=== PATIENT | male | born 1955 | race Caucasian/White ===

== ENCOUNTER 2020-08-20 09:26 | Inpatient (IN) | payer OTHER ==
--- NOTE | 2020-08-20 09:38 | EDM.PDOC ---
ED HPI GENERAL MEDICAL PROBLEM - General Chief Complaint: Diabetic Complaint Stated Complaint: [facility]AL [facility] Time Seen by Provider: 08/20/20 09:30 Source of Information: Reports: Patient History Limitations: Reports: No Limitations - History of Present Illness INITIAL COMMENTS - FREE TEXT/NARRATIVE: 64-year-old male [facility] where it was discovered that his blood sugar is greater than 705. Patient has no known history of diabetes. No family history of diabetes. He reports he has been excessively thirsty with polyuria and polydipsia for the last month. Estimates a 17 pound weight loss over the last month. Feels lightheaded and dizzy and weak at times. 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 He has a 58-76-ccrn-year history of cigarette smoking. Chronic cough occasionally productive of brownish sputum. No fever or chills. No COVID-19 illness. He has received his first injection for COVID-19 illness. Onset: Gradual Onset Date: 07/24/20 (Feels symptoms started about a month ago.) Duration: Week(s):, Getting Worse Location: Reports: Generalized (Neurolysed weakness with weight loss and associated polyuria polydipsia) Quality: Reports: Other (Excessive thirst) Severity: Severe (polyuria) Improves with: Reports: None Worsens with: Reports: None Context: Reports: Other (Sent to the ER due to blood sugar reportedly greater than 705 at the [facility] that were as collected yesterday.). Denies: Activity, Exercise, Lifting, Sick Contact, Trauma Associated Symptoms: Reports: Cough, cough w sputum (Cough from cigarette smoking), Loss of Appetite, Malaise, Weakness (I severe weakness.). 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 (see below) - Related Data Allergies Allergy/AdvReac Type Severity Reaction Status Date / Time No Known Allergies Allergy Verified 08/20/20 09:35 Home Meds: Home Meds Cetirizine HCl [Allergy Relief] 10 mg PO DAILY 08/20/20 [History] Cholecalciferol (Vitamin D3) [Vitamin D3] 25 mcg PO DAILY 08/20/20 [History] Hydrocortisone [Hydrocortisone 2.5% Crm] 30 gm TOP BID PRN 08/20/20 [History] atorvaSTATin Calcium [Atorvastatin Calcium] 20 mg PO BEDTIME 08/20/20 [History] metFORMIN HCl [Metformin HCl] 500 mg PO BIDMEALS 08/20/20 [History] Past Medical History Musculoskeletal History: Reports: Other (See Below) (Nearly chopped off his great big toe on the right side with a lawnmower. It was put back on with skin grafting. He has had open reduction internal fixation of right ankle fracture) Social & Family History - Living Situation & Occupation Living situation: Reports: Single Occupation: Retired ED ROS GENERAL - Review of Systems Review Of Systems: See Below Constitutional: Reports: Malaise, Weakness, Fatigue, Decreased Appetite, Weight Loss (He estimates 17 pounds in the last 3 to 4 weeks). Denies: Fever, Chills HEENT: Reports: Glasses, Other (Vision) Respiratory: Reports: Shortness of Breath ( seems to change a blurred at times.), Wheezing, Cough, Sputum. Denies: Pleuritic Chest Pain, Hemoptysis Cardiovascular: Reports: Dyspnea on Exertion, Lightheadedness, Palpitations. Denies: Chest Pain (Known sputum at times), Blood Pressure Problem, Claudication, Edema, Orthopnea Endocrine: Reports: Fatigue, High Glucose (Diagnosed with high glucose by lab test yesterday [facility] 705. New onset type 2 diabetes) GI/Abdominal: Reports: Constipation. Denies: Diarrhea, Decreased Appetite, Difficulty Swallowing (Stools are harder to pass as of late.), Distension, Flatus, Hematemesis, Hematochezia, Melena, Mucous in Stool, Nausea, Stool Incontinence, Vomiting, Other : Reports: Frequency Musculoskeletal: Reports: Back Pain, Joint Pain Skin: Reports: No Symptoms (Knees hips neck and shoulders at times) Neurological: Reports: Dizziness, Difficulty Walking (Walking very far I suspect he has a component of claudication in his calves.), Weakness (Dizziness at times.) Psychiatric: Reports: No Symptoms Hematologic/Lymphatic: Reports: No Symptoms Immunologic: Reports: No Symptoms ED EXAM GENERAL NO PERIP PULSE - Physical Exam Exam: See Below Exam Limited By: No Limitations General Appearance: Alert, WD/WN, No Apparent Distress, Other (Has a grayish color to his skin from chronic smoking. Temperature is 36.2 degrees heart rate 91 and sinus respiratory it is 20 with O2 sats of 90% on room air BP 105/64.) Eye Exam: Bilateral Eye: Normal Inspection (No scleral icterus or blepharal pallor.) Throat/Mouth: Normal Lips ( He is in need of dental repairs.), Inflammation, Other. No: Normal Teeth (Tongue is extremely dry and coated.) Head: Atraumatic (Oropharynx is diffusely inflamed from cigarette smoking. No exudate), Normocephalic Neck: Limited Range of Motion, Tender Lateral (Mild bilaterally.). No: Carotid Bruit, Lymphadenopathy (L) (Crepitus on lateral rotation of his cervical spine.), Lymphadenopathy (R) Respiratory/Chest: Respiratory Distress, Decreased Breath Sounds, Rhonchi, Wheezing (Sounds are diminished to the lower 20% lung vincent bilaterally. Scattered expiratory wheezes throughout all lung lobes.). No: No Respiratory Distress, Lungs Clear (Rhonchi upper anterior chest that clears with coughing.), Normal Breath Sounds Cardiovascular: Regular Rate, Rhythm, No Edema, No Gallop, No Murmur, No Rub, Other (Decreased pulses to both feet 1+ and symmetrical. Clinically has mild peripheral vascular disease). No: Normal Peripheral Pulses (Tachypnea at rest.) GI/Abdominal: Normal Bowel Sounds, Soft, Non-Tender, No Organomegaly, No Mass, Pelvis Stable, Other (Male) Exam: No Hernia (No surgical scars) Back Exam: Normal Inspection. No: CVA Tenderness (L), CVA Tenderness (R) Extremities: Normal Inspection, Normal Range of Motion, Non-Tender, No Pedal Edema Neurological: Alert, Oriented, CN II-XII Intact, Normal Cognition Psychiatric: Normal Affect, Normal Mood Skin Exam: Warm, Dry, Intact, Normal Color, No Rash #1 Interpretation EKG Date: 08/20/20 Time: 09:51 Rhythm: NSR Rate (Beats/Min): 82 [place]: Normal P-Wave: Present (Inverted in lead III?) QRS: Normal ST-T: Other (Diffuse early repolarization pattern with pseudoelevation of ST segment in leads II, III and aVF.) QT: Prolonged (Early prolonged.) EKG Interpretation Comments: Abnormal ECG Course - Vital Signs Last Recorded V/S: Last Vital Signs Temp 36.2 C 08/20/20 09:34 Pulse 91 08/20/20 09:34 Resp 20 08/20/20 09:34 BP 105/64 08/20/20 09:34 Pulse Ox 98 08/20/20 09:34 - Orders/Labs/Meds Orders: Active Orders 24 hr Category Date Time Status Admission Status [Patient Status] [ADT] Routine ADT 08/20/20 11:16 Active Blood Glucose Check, Bedside [RC] ONETIME Care 08/20/20 09:46 Active EKG Documentation Completion [RC] STAT Care 08/20/20 09:45 Active GLUCOSE RANDOM [CHEM] Q1H Lab 08/20/20 11:45 Ordered GLUCOSE RANDOM [CHEM] Q1H Lab 08/20/20 12:45 Ordered GLUCOSE RANDOM [CHEM] Q1H Lab 08/20/20 13:45 Ordered GLUCOSE RANDOM [CHEM] Q1H Lab 08/20/20 14:45 Ordered GLUCOSE RANDOM [CHEM] Q1H Lab 08/20/20 15:45 Ordered GLUCOSE RANDOM [CHEM] Q1H Lab 08/20/20 16:45 Ordered GLYCOSYLATED HEMOGLOBIN,HGBA1C [CHEM] Stat Lab 08/20/20 09:48 Received Insulin Regular, Human [HumuLIN R] 100 unit Med 08/20/20 10:45 Active Sodium Chloride 0.9% [Normal Saline] 99 ml IV ASDIRECTED Lactated Ringers [Ringers, Lactated] 1,000 ml Med 08/20/20 09:45 Active IV ASDIRECTED Lactated Ringers [Ringers, Lactated] 1,000 ml Med 08/20/20 11:00 Active IV ASDIRECTED Medication Orders Lactated Ringer's (Ringers, Lactated) 1,000 mls @ 999 mls/hr IV ASDIRECTED AMAURY Last Admin: 08/20/20 09:50 Dose: 999 mls/hr Documented by: RUBEN Insulin Human Regular 100 unit (/ Sodium Chloride) 100 mls @ 3 mls/hr IV ASDIRECTED [facility] Last Admin: 08/20/20 10:51 Dose: 3 unit/hr, 3 mls/hr Documented by: RUBEN Cosigned by: JEN Lactated Ringer's (Ringers, Lactated) 1,000 mls @ 999 mls/hr IV ASDIRECTED [facility] Last Admin: 08/20/20 10:56 Dose: 999 mls/hr Documented by: JEN Labs: Laboratory Tests 08/20/20 08/20/20 08/20/20 Range/Units 09:48 09:48 09:48 WBC 9.82 H (4.23-9.07) K/mm3 RBC 5.01 (4.63-6.08) M/mm3 Hgb 15.5 (13.7-17.5) gm/dl Hct 44.4 (40.1-51.0) % MCV 88.6 (79.0-92.2) fl MCH 30.9 (25.7-32.2) pg MCHC 34.9 (32.2-35.5) g/dl RDW Std Deviation 40.9 (35.1-43.9) fL Plt Count 275 (163-337) K/mm3 MPV 9.8 (9.4-12.3) fl Neut % (Auto) 77.0 H (34.0-67.9) % Lymph % (Auto) 15.1 L (21.8-53.1) % [place] % (Auto) 6.5 (5.3-12.2) % Eos % (Auto) 0.8 (0.8-7.0) Baso % (Auto) 0.3 (0.1-1.2) % Neut # (Auto) 7.56 H (1.78-5.38) K/mm3 Lymph # (Auto) 1.48 (1.32-3.57) K/mm3 [place] # (Auto) 0.64 (0.30-0.82) K/mm3 Eos # (Auto) 0.08 (0.04-0.54) K/mm3 Baso # (Auto) 0.03 (0.01-0.08) K/mm3 PT 9.8 (9.7-12.0) SECONDS INR < 0.93 APTT 25.0 (21.7-31.4) SECONDS Sodium (136-145) mEq/L Potassium (3.5-5.1) mEq/L Chloride (98-107) mEq/L Carbon Dioxide (21-32) mEq/L Anion Gap (5-15) BUN (7-18) mg/dL Creatinine (0.7-1.3) mg/dL Est Cr Clr Drug Dosing mL/min Estimated GFR (MDRD) (>60) mL/min BUN/Creatinine Ratio (14-18) Glucose (80-115) mg/dL Serum Osmolality (280-300) mosm/kg Lactic Acid (0.4-2.0) mmol/L Calcium (8.5-10.1) mg/dL Phosphorus (2.6-4.7) mg/dL Magnesium (1.8-2.4) mg/dl Total Bilirubin (0.2-1.0) mg/dL AST (15-37) U/L ALT (16-63) U/L Alkaline Phosphatase (46-116) U/L Troponin I (0.00-0.056) ng/mL C-Reactive Protein (<1.0) mg/dL NT-Pro-B Natriuret Pep (0-125) pg/mL Total Protein (6.4-8.2) g/dl Albumin (3.4-5.0) g/dl Globulin gm/dL Albumin/Globulin Ratio (1-2) Urine Color (Yellow) Urine Appearance (Clear) Urine pH (5.0-8.0) Ur Specific [place] (1.005-1.030) Urine Protein (Negative) Urine Glucose (UA) (Negative) Urine Ketones (Negative) Urine Occult Blood (Negative) Urine Nitrite (Negative) Urine Bilirubin (Negative) Urine Urobilinogen (0.2-1.0) Ur Leukocyte Esterase (Negative) Urine RBC (0-5) /hpf Urine WBC (0-5) /hpf Ur Squamous Epith Cells (0-5) /hpf Urine Bacteria (FEW) /hpf Urine Mucus (FEW) /hpf Ketones 1.21 (0.0-0.3) mM SARS-CoV-2 RNA (NYLA) (NEGATIVE) 08/20/20 08/20/20 08/20/20 Range/Units 09:48 09:48 09:48 WBC (4.23-9.07) K/mm3 RBC (4.63-6.08) M/mm3 Hgb (13.7-17.5) gm/dl Hct (40.1-51.0) % MCV (79.0-92.2) fl MCH (25.7-32.2) pg MCHC (32.2-35.5) g/dl RDW Std Deviation (35.1-43.9) fL Plt Count (163-337) K/mm3 MPV (9.4-12.3) fl Neut % (Auto) (34.0-67.9) % Lymph % (Auto) (21.8-53.1) % [place] % (Auto) (5.3-12.2) % Eos % (Auto) (0.8-7.0) Baso % (Auto) (0.1-1.2) % Neut # (Auto) (1.78-5.38) K/mm3 Lymph # (Auto) (1.32-3.57) K/mm3 [place] # (Auto) (0.30-0.82) K/mm3 Eos # (Auto) (0.04-0.54) K/mm3 Baso # (Auto) (0.01-0.08) K/mm3 PT (9.7-12.0) SECONDS INR APTT (21.7-31.4) SECONDS Sodium 128 L (136-145) mEq/L Potassium 5.2 H (3.5-5.1) mEq/L Chloride 92 L (98-107) mEq/L Carbon Dioxide 25 (21-32) mEq/L Anion Gap 16.2 H (5-15) BUN 34 H (7-18) mg/dL Creatinine 1.7 H (0.7-1.3) mg/dL Est Cr Clr Drug Dosing 41.91 mL/min Estimated GFR (MDRD) 41 (>60) mL/min BUN/Creatinine Ratio 20.0 H (14-18) Glucose 712 H* (80-115) mg/dL Serum Osmolality 320 H (280-300) mosm/kg Lactic Acid (0.4-2.0) mmol/L Calcium 10.4 H (8.5-10.1) mg/dL Phosphorus 3.8 (2.6-4.7) mg/dL Magnesium 2.2 (1.8-2.4) mg/dl Total Bilirubin 0.7 (0.2-1.0) mg/dL AST 17 (15-37) U/L ALT 38 (16-63) U/L Alkaline Phosphatase 171 H (46-116) U/L Troponin I < 0.017 (0.00-0.056) ng/mL C-Reactive Protein 0.6 (<1.0) mg/dL NT-Pro-B Natriuret Pep 45 (0-125) pg/mL Total Protein 7.3 (6.4-8.2) g/dl Albumin 3.3 L (3.4-5.0) g/dl Globulin 4.0 gm/dL Albumin/Globulin Ratio 0.8 L (1-2) Urine Color (Yellow) Urine Appearance (Clear) Urine pH (5.0-8.0) Ur Specific [place] (1.005-1.030) Urine Protein (Negative) Urine Glucose (UA) (Negative) Urine Ketones (Negative) Urine Occult Blood (Negative) Urine Nitrite (Negative) Urine Bilirubin (Negative) Urine Urobilinogen (0.2-1.0) Ur Leukocyte Esterase (Negative) Urine RBC (0-5) /hpf Urine WBC (0-5) /hpf Ur Squamous Epith Cells (0-5) /hpf Urine Bacteria (FEW) /hpf Urine Mucus (FEW) /hpf Ketones (0.0-0.3) mM SARS-CoV-2 RNA ([facility]LA) (NEGATIVE) 08/20/20 08/20/20 08/20/20 Range/Units 09:55 10:05 10:22 WBC (4.23-9.07) K/mm3 RBC (4.63-6.08) M/mm3 Hgb (13.7-17.5) gm/dl Hct (40.1-51.0) % MCV (79.0-92.2) fl MCH (25.7-32.2) pg MCHC (32.2-35.5) g/dl RDW Std Deviation (35.1-43.9) fL Plt Count (163-337) K/mm3 MPV (9.4-12.3) fl Neut % (Auto) (34.0-67.9) % Lymph % (Auto) (21.8-53.1) % [place] % (Auto) (5.3-12.2) % Eos % (Auto) (0.8-7.0) Baso % (Auto) (0.1-1.2) % Neut # (Auto) (1.78-5.38) K/mm3 Lymph # (Auto) (1.32-3.57) K/mm3 [place] # (Auto) (0.30-0.82) K/mm3 Eos # (Auto) (0.04-0.54) K/mm3 Baso # (Auto) (0.01-0.08) K/mm3 PT (9.7-12.0) SECONDS INR APTT (21.7-31.4) SECONDS Sodium (136-145) mEq/L Potassium (3.5-5.1) mEq/L Chloride (98-107) mEq/L Carbon Dioxide (21-32) mEq/L Anion Gap (5-15) BUN (7-18) mg/dL Creatinine (0.7-1.3) mg/dL Est Cr Clr Drug Dosing mL/min Estimated GFR (MDRD) (>60) mL/min BUN/Creatinine Ratio (14-18) Glucose (80-115) mg/dL Serum Osmolality (280-300) mosm/kg Lactic Acid 1.0 (0.4-2.0) mmol/L Calcium (8.5-10.1) mg/dL Phosphorus (2.6-4.7) mg/dL Magnesium (1.8-2.4) mg/dl Total Bilirubin (0.2-1.0) mg/dL AST (15-37) U/L ALT (16-63) U/L Alkaline Phosphatase (46-116) U/L Troponin I (0.00-0.056) ng/mL C-Reactive Protein (<1.0) mg/dL NT-Pro-B Natriuret Pep (0-125) pg/mL Total Protein (6.4-8.2) g/dl Albumin (3.4-5.0) g/dl Globulin gm/dL Albumin/Globulin Ratio (1-2) Urine Color Yellow (Yellow) Urine Appearance Clear (Clear) Urine pH 5.5 (5.0-8.0) Ur Specific [place] 1.010 (1.005-1.030) Urine Protein Negative (Negative) Urine Glucose (UA) 2+ H (Negative) Urine Ketones Trace H (Negative) Urine Occult Blood Trace-intact H (Negative) Urine Nitrite Negative (Negative) Urine Bilirubin Negative (Negative) Urine Urobilinogen 0.2 (0.2-1.0) Ur Leukocyte Esterase Negative (Negative) Urine RBC 5-10 H (0-5) /hpf Urine WBC 0-5 (0-5) /hpf Ur Squamous Epith Cells 0-5 (0-5) /hpf Urine Bacteria Few (FEW) /hpf Urine Mucus Few (FEW) /hpf Ketones (0.0-0.3) mM SARS-CoV-2 RNA ([facility]LA) Negative (NEGATIVE) Meds: Medications Generic Name Dose Route Start Last Admin Trade Name Silvano PRN Reason Stop Dose Admin Lactated Ringer's 1,000 mls @ 999 mls/hr 08/20/20 09:45 08/20/20 09:50 Ringers, Lactated IV 999 mls/hr ASDIRECTED AMAURY Administration Insulin Human Regular 100 unit 100 mls @ 3 mls/hr 08/20/20 10:45 08/20/20 10:51 / Sodium Chloride IV 3 unit/hr ASDIRECTED AMAURY 3 mls/hr Administration 3 UNIT/HR Lactated Ringer's 1,000 mls @ 999 mls/hr 08/20/20 11:00 08/20/20 10:56 Ringers, Lactated IV 999 mls/hr ASDIRECTED AMAURY Administration - Radiology Interpretation Free Text/Narrative:: 64-year-old male presents to the ED at the [facility]. He had lab work done yesterday and the results revealed that he is a new type onset type II diabetic. Blood sugar is reportedly 705. He has been symptomatic for about a month with a 17 pound reported weight loss polyuria polydipsia and weakness and fatigue. He is a heavy smoker [id number] history with no known coronary disease but I am suspect mild peripheral vascular disease and some claudication in his lower extremities. Plan IV Ringer's lactate at open. We will check his blood sugar at the bedside and start insulin drip as required. Coronavirus screen will be obtained as he will be an admission to the hospital. - Re-Assessments/Exams Free Text/Narrative Re-Assessment/Exam: 08/20/20 10:33 portable chest x-ray reveals heart size and mediastinum to be are normal. Lungs are clear with no definite acute parenchymal changes. Bony structures are grossly intact. Lead sugar is reported to be 712. Will start insulin infusion at 3 units an hour. Blood sugars will be done every 1 hour after insulin infusion has started. 08/20/20 10:38 Total white count is 9.82 with the auto differential showing 77% neutrophils. Hemoglobin is 15.5 with hematocrit of 44.4. MCV is normal at 88.6. Platelet count 275,000. Sodium is low at 128 with a potassium slightly elevated at 5.2. Chloride is 92. Bicarb is 25 anion gap is 16.2 BUN is 34 the creatinine of 1.7 and a GFR of 41. Glucose was 712. Calcium 10.4 phosphorus 3.8 magnesium 2.2 liver function normal alk phosphatase was slightly elevated 171. Troponin I is less than 0.017 C-reactive protein is 0.6 BNP is 45 total protein 7.3 with an albumin fraction of 3.3. Urinalysis reveals 2+ glucosuria trace of ketones and trace of occult blood.. Leukocyte esterase is negative. M icro on the urinalysis is not yet done. Lactic acid and ketones are not yet available. 08/20/20 10:54 Urine shows 5-10 RBCs per high-power field but no white cells. Serum ketones are mildly elevated at 1.21. COVID-19 screen is negative. Lactic acid, glycosylated protein are pending. Serum osmolality is also pending. He has completed his first liter of IV fluids. Will repeat Ringer's lactate at open. 08/20/20 11:15 Serum osmolality is 320 mildly elevated. Lactic acid is 1.0. Glycosylated protein is not yet available. Dr. Gill is aware of the admission. He advised to send the patient to the intensive care unit. Did discuss with the patient whether or not he would need a nicotine patch and he believed he would not need to have one. Departure - Departure Time of Disposition: 11:33 Disposition: Home, Self-Care 01 Condition: Fair Clinical Impression: New onset type 2 diabetes mellitus, Volume depletion, Ketoacidosis - Discharge Information *PRESCRIPTION DRUG MONITORING PROGRAM REVIEWED*: Not Applicable *COPY OF PRESCRIPTION DRUG MONITORING REPORT IN PATIENT MICAH: Not Applicable Instructions: Type 2 Diabetes Mellitus, Diagnosis, Adult Referrals: Kristi Marinelli MD [Primary Care Provider] - Forms: ED Department Discharge Sepsis Event Note (ED) - Evaluation Sepsis Screening Result: No Definite Risk - Focused Exam Vital Signs: Vital Signs Temp Pulse Resp BP Pulse Ox 08/20/20 09:34 36.2 C 91 20 105/64 98 - My Orders Last 24 Hours: My Active Orders 08/20/20 09:45 EKG Documentation Completion [RC] STAT Lactated Ringers [Ringers, Lactated] 1,000 ml IV ASDIRECTED 08/20/20 09:46 Blood Glucose Check, Bedside [RC] ONETIME 08/20/20 09:48 GLYCOSYLATED HEMOGLOBIN,HGBA1C [CHEM] Stat 08/20/20 10:45 Insulin Regular, Human [HumuLIN R] 100 unit Sodium Chloride 0.9% [Normal Saline] 99 ml IV ASDIRECTED 08/20/20 11:00 Lactated Ringers [Ringers, Lactated] 1,000 ml IV ASDIRECTED 08/20/20 11:16 Admission Status [Patient Status] [ADT] Routine 08/20/20 11:45 GLUCOSE RANDOM [CHEM] Q1H 08/20/20 12:45 GLUCOSE RANDOM [CHEM] Q1H 08/20/20 13:45 GLUCOSE RANDOM [CHEM] Q1H 08/20/20 14:45 GLUCOSE RANDOM [CHEM] Q1H 08/20/20 15:45 GLUCOSE RANDOM [CHEM] Q1H 08/20/20 16:45 GLUCOSE RANDOM [CHEM] Q1H - Assessment/Plan Last 24 Hours: My Active Orders 08/20/20 09:45 EKG Documentation Completion [RC] STAT Lactated Ringers [Ringers, Lactated] 1,000 ml IV ASDIRECTED 08/20/20 09:46 Blood Glucose Check, Bedside [RC] ONETIME 08/20/20 09:48 GLYCOSYLATED HEMOGLOBIN,HGBA1C [CHEM] Stat 08/20/20 10:45 Insulin Regular, Human [HumuLIN R] 100 unit Sodium Chloride 0.9% [Normal Saline] 99 ml IV ASDIRECTED 08/20/20 11:00 Lactated Ringers [Ringers, Lactated] 1,000 ml IV ASDIRECTED 08/20/20 11:16 Admission Status [Patient Status] [ADT] Routine 08/20/20 11:45 GLUCOSE RANDOM [CHEM] Q1H 08/20/20 12:45 GLUCOSE RANDOM [CHEM] Q1H 08/20/20 13:45 GLUCOSE RANDOM [CHEM] Q1H 08/20/20 14:45 GLUCOSE RANDOM [CHEM] Q1H 08/20/20 15:45 GLUCOSE RANDOM [CHEM] Q1H 08/20/20 16:45 GLUCOSE RANDOM [CHEM] Q1H
[2020-08-20] MEDS ORDERED: Lactated Ringers 1,000 ML IV SCH ×3 (09:45→14:15)
--- NOTE | 2020-08-20 10:23 | CR ---
Chest: Portable view of the chest was obtained. Comparison: No prior chest imaging is available. Heart size and mediastinum are normal. Lungs are clear with no definite acute parenchymal change. Bony structures are grossly intact. Impression: 1. Nothing acute is definitely appreciated on portable chest x-ray. Diagnostic code #1
[2020-08-20] MEDS ORDERED: Acetaminophen 325 MG Tab PO PRN (13:59)
--- NOTE | 2020-08-20 14:14 | PCM.HP.2 ---
H&P History of Present Illness - General Date of Service: 08/20/20 Admit Problem/Dx: Admission Diagnosis/Problem Admission Diagnosis/Problem Type 2 diabetes mellitus - History of Present Illness Initial Comments - Free Text/Narative: 54-year-old male who was called this morning at 4:30 in the morning about elevat ed blood sugars presented to [facility] with a blood sugar greater than 700. Patient's provider called and said that his hemoglobin A1c was greater than 14. He has had a 17 pound weight loss over the last month and a half or so and has felt short of breath and palpitations going up or down stairs for the last 3 weeks. They placed an event monitor on him earlier because of the palpitations. Patient has no history of diabetes but does complain of polyuria and polydipsia. He is a smoker of 1/2 pack/day with a 40 to 50 pack year history. He refuses any nicotine patch at this time. Currently he is sitting in bed without any complaints. Patient was found to have blood sugar of 712 in the emergency department and was given fluid boluses as well as started on insulin. He is currently on an insulin drip at 3 units/h. Blood sugars have slowly come down and is now in the 400s. His serum osmolality was 320. - Related Data Allergies/Adverse Reactions: Allergies Allergy/AdvReac Type Severity Reaction Status Date / Time No Known Allergies Allergy Verified 08/20/20 09:35 Home Medications: Home Meds Cetirizine HCl [Allergy Relief] 10 mg PO DAILY 08/20/20 [History] Cholecalciferol (Vitamin D3) [Vitamin D3] 25 mcg PO DAILY 08/20/20 [History] Hydrocortisone [Hydrocortisone 2.5% Crm] 30 gm TOP BID PRN 08/20/20 [History] atorvaSTATin Calcium [Atorvastatin Calcium] 20 mg PO BEDTIME 08/20/20 [History] metFORMIN HCl [Metformin HCl] 500 mg PO BIDMEALS 08/20/20 [History] Past Medical History HEENT History: Reports: Other (See Below) Other HEENT History: [place], bilateral hearing aides Cardiovascular History: Reports: High Cholesterol, Hypertension Respiratory History: Reports: SOB Musculoskeletal History: Reports: Other (See Below) Other Musculoskeletal History: left toe skin graph Endocrine/Metabolic History: Reports: Diabetes, Type II Social & Family History - Tobacco Use Tobacco Use Status *Q: Current Every Day Tobacco User Years of Tobacco use: 30 Packs/Tins Daily: 0.5 - Caffeine Use Caffeine Use: Reports: Soda - Recreational Drug Use Recreational Drug Use: No - Living Situation & Occupation Living situation: Reports: Single Occupation: Retired H&P Review of Systems - Review of Systems: Review Of Systems: Comprehensive ROS is negative, except as noted in HPI. Exam - Exam Exam: See Below - Vital Signs Vital Signs: Last Vital Signs Temp 97.1 F 08/20/20 09:34 Pulse 91 08/20/20 09:34 Resp 20 08/20/20 09:34 BP 105/64 08/20/20 09:34 Pulse Ox 98 08/20/20 09:34 Weight: 191 lb 8 oz - Exam Quality Assessment: No: Supplemental Oxygen General: Alert, Oriented, 4 HEENT: Conjunctiva Clear, Mucosa Moist & Leslie, Normal Nasal Septum Neck: Supple, Trachea Midline, 2 Lungs: Normal Respiratory Effort, Wheezing (Mild expiratory wheeze) Cardiovascular: Regular Rate, Regular Rhythm GI/Abdominal Exam: Normal Bowel Sounds, Soft, Non-Tender, No Organomegaly, No Distention, No Abnormal Bruit, No Mass Back Exam: Normal Inspection, Full Range of Motion, NT Extremities: Normal Inspection, Normal Range of Motion, Non-Tender, No Pedal Edema, Normal Capillary Refill Peripheral Pulses: 2+: Posterior Tibial (L), Posterior Tibial (R), Dorsalis Pedis (L), Dorsalis Pedis (R) Skin: Warm, Dry, Intact Neuro Extensive - Mental Status: Alert, Oriented x3, Normal Mood/Affect, Normal Cognition, Memory Intact Neuro Extensive - Motor, Sensory, Reflexes: CN II-XII Intact Psychiatric: Alert, Normal Affect, Normal Mood - Patient Data Lab Results Last 24 hrs: Laboratory Results - last 24 hr 08/20/20 08/20/20 08/20/20 Range/Units 09:48 09:48 09:48 WBC 9.82 H (4.23-9.07) K/mm3 RBC 5.01 (4.63-6.08) M/mm3 Hgb 15.5 (13.7-17.5) gm/dl Hct 44.4 (40.1-51.0) % MCV 88.6 (79.0-92.2) fl MCH 30.9 (25.7-32.2) pg MCHC 34.9 (32.2-35.5) g/dl RDW Std Deviation 40.9 (35.1-43.9) fL Plt Count 275 (163-337) K/mm3 MPV 9.8 (9.4-12.3) fl Neut % (Auto) 77.0 H (34.0-67.9) % Lymph % (Auto) 15.1 L (21.8-53.1) % Sharkey % (Auto) 6.5 (5.3-12.2) % Eos % (Auto) 0.8 (0.8-7.0) Baso % (Auto) 0.3 (0.1-1.2) % Neut # (Auto) 7.56 H (1.78-5.38) K/mm3 Lymph # (Auto) 1.48 (1.32-3.57) K/mm3 Sharkey # (Auto) 0.64 (0.30-0.82) K/mm3 Eos # (Auto) 0.08 (0.04-0.54) K/mm3 Baso # (Auto) 0.03 (0.01-0.08) K/mm3 PT 9.8 (9.7-12.0) SECONDS INR < 0.93 APTT 25.0 (21.7-31.4) SECONDS Sodium (136-145) mEq/L Potassium (3.5-5.1) mEq/L Chloride (98-107) mEq/L Carbon Dioxide (21-32) mEq/L Anion Gap (5-15) BUN (7-18) mg/dL Creatinine (0.7-1.3) mg/dL Est Cr Clr Drug Dosing mL/min Estimated GFR (MDRD) (>60) mL/min BUN/Creatinine Ratio (14-18) Glucose (80-115) mg/dL Serum Osmolality (280-300) mosm/kg Lactic Acid (0.4-2.0) mmol/L Calcium (8.5-10.1) mg/dL Phosphorus (2.6-4.7) mg/dL Magnesium (1.8-2.4) mg/dl Total Bilirubin (0.2-1.0) mg/dL AST (15-37) U/L ALT (16-63) U/L Alkaline Phosphatase (46-116) U/L Troponin I (0.00-0.056) ng/mL C-Reactive Protein (<1.0) mg/dL NT-Pro-B Natriuret Pep (0-125) pg/mL Total Protein (6.4-8.2) g/dl Albumin (3.4-5.0) g/dl Globulin gm/dL Albumin/Globulin Ratio (1-2) Urine Color (Yellow) Urine Appearance (Clear) Urine pH (5.0-8.0) Ur Specific Wilson (1.005-1.030) Urine Protein (Negative) Urine Glucose (UA) (Negative) Urine Ketones (Negative) Urine Occult Blood (Negative) Urine Nitrite (Negative) Urine Bilirubin (Negative) Urine Urobilinogen (0.2-1.0) Ur Leukocyte Esterase (Negative) Urine RBC (0-5) /hpf Urine WBC (0-5) /hpf Ur Squamous Epith Cells (0-5) /hpf Urine Bacteria (FEW) /hpf Urine Mucus (FEW) /hpf Ketones 1.21 (0.0-0.3) mM SARS-CoV-2 RNA (NYLA) (NEGATIVE) 08/20/20 08/20/20 08/20/20 Range/Units 09:48 09:48 09:48 WBC (4.23-9.07) K/mm3 RBC (4.63-6.08) M/mm3 Hgb (13.7-17.5) gm/dl Hct (40.1-51.0) % MCV (79.0-92.2) fl MCH (25.7-32.2) pg MCHC (32.2-35.5) g/dl RDW Std Deviation (35.1-43.9) fL Plt Count (163-337) K/mm3 MPV (9.4-12.3) fl Neut % (Auto) (34.0-67.9) % Lymph % (Auto) (21.8-53.1) % Sharkey % (Auto) (5.3-12.2) % Eos % (Auto) (0.8-7.0) Baso % (Auto) (0.1-1.2) % Neut # (Auto) (1.78-5.38) K/mm3 Lymph # (Auto) (1.32-3.57) K/mm3 Sharkey # (Auto) (0.30-0.82) K/mm3 Eos # (Auto) (0.04-0.54) K/mm3 Baso # (Auto) (0.01-0.08) K/mm3 PT (9.7-12.0) SECONDS INR APTT (21.7-31.4) SECONDS Sodium 128 L (136-145) mEq/L Potassium 5.2 H (3.5-5.1) mEq/L Chloride 92 L (98-107) mEq/L Carbon Dioxide 25 (21-32) mEq/L Anion Gap 16.2 H (5-15) BUN 34 H (7-18) mg/dL Creatinine 1.7 H (0.7-1.3) mg/dL Est Cr Clr Drug Dosing 41.91 mL/min Estimated GFR (MDRD) 41 (>60) mL/min BUN/Creatinine Ratio 20.0 H (14-18) Glucose 712 H* (80-115) mg/dL Serum Osmolality 320 H (280-300) mosm/kg Lactic Acid (0.4-2.0) mmol/L Calcium 10.4 H (8.5-10.1) mg/dL Phosphorus 3.8 (2.6-4.7) mg/dL Magnesium 2.2 (1.8-2.4) mg/dl Total Bilirubin 0.7 (0.2-1.0) mg/dL AST 17 (15-37) U/L ALT 38 (16-63) U/L Alkaline Phosphatase 171 H (46-116) U/L Troponin I < 0.017 (0.00-0.056) ng/mL C-Reactive Protein 0.6 (<1.0) mg/dL NT-Pro-B Natriuret Pep 45 (0-125) pg/mL Total Protein 7.3 (6.4-8.2) g/dl Albumin 3.3 L (3.4-5.0) g/dl Globulin 4.0 gm/dL Albumin/Globulin Ratio 0.8 L (1-2) Urine Color (Yellow) Urine Appearance (Clear) Urine pH (5.0-8.0) Ur Specific Wilson (1.005-1.030) Urine Protein (Negative) Urine Glucose (UA) (Negative) Urine Ketones (Negative) Urine Occult Blood (Negative) Urine Nitrite (Negative) Urine Bilirubin (Negative) Urine Urobilinogen (0.2-1.0) Ur Leukocyte Esterase (Negative) Urine RBC (0-5) /hpf Urine WBC (0-5) /hpf Ur Squamous Epith Cells (0-5) /hpf Urine Bacteria (FEW) /hpf Urine Mucus (FEW) /hpf Ketones (0.0-0.3) mM SARS-CoV-2 RNA ([facility]LA) (NEGATIVE) 08/20/20 08/20/20 08/20/20 Range/Units 09:55 10:05 10:22 WBC (4.23-9.07) K/mm3 RBC (4.63-6.08) M/mm3 Hgb (13.7-17.5) gm/dl Hct (40.1-51.0) % MCV (79.0-92.2) fl MCH (25.7-32.2) pg MCHC (32.2-35.5) g/dl RDW Std Deviation (35.1-43.9) fL Plt Count (163-337) K/mm3 MPV (9.4-12.3) fl Neut % (Auto) (34.0-67.9) % Lymph % (Auto) (21.8-53.1) % Sharkey % (Auto) (5.3-12.2) % Eos % (Auto) (0.8-7.0) Baso % (Auto) (0.1-1.2) % Neut # (Auto) (1.78-5.38) K/mm3 Lymph # (Auto) (1.32-3.57) K/mm3 Sharkey # (Auto) (0.30-0.82) K/mm3 Eos # (Auto) (0.04-0.54) K/mm3 Baso # (Auto) (0.01-0.08) K/mm3 PT (9.7-12.0) SECONDS INR APTT (21.7-31.4) SECONDS Sodium (136-145) mEq/L Potassium (3.5-5.1) mEq/L Chloride (98-107) mEq/L Carbon Dioxide (21-32) mEq/L Anion Gap (5-15) BUN (7-18) mg/dL Creatinine (0.7-1.3) mg/dL Est Cr Clr Drug Dosing mL/min Estimated GFR (MDRD) (>60) mL/min BUN/Creatinine Ratio (14-18) Glucose (80-115) mg/dL Serum Osmolality (280-300) mosm/kg Lactic Acid 1.0 (0.4-2.0) mmol/L Calcium (8.5-10.1) mg/dL Phosphorus (2.6-4.7) mg/dL Magnesium (1.8-2.4) mg/dl Total Bilirubin (0.2-1.0) mg/dL AST (15-37) U/L ALT (16-63) U/L Alkaline Phosphatase (46-116) U/L Troponin I (0.00-0.056) ng/mL C-Reactive Protein (<1.0) mg/dL NT-Pro-B Natriuret Pep (0-125) pg/mL Total Protein (6.4-8.2) g/dl Albumin (3.4-5.0) g/dl Globulin gm/dL Albumin/Globulin Ratio (1-2) Urine Color Yellow (Yellow) Urine Appearance Clear (Clear) Urine pH 5.5 (5.0-8.0) Ur Specific Wilson 1.010 (1.005-1.030) Urine Protein Negative (Negative) Urine Glucose (UA) 2+ H (Negative) Urine Ketones Trace H (Negative) Urine Occult Blood Trace-intact H (Negative) Urine Nitrite Negative (Negative) Urine Bilirubin Negative (Negative) Urine Urobilinogen 0.2 (0.2-1.0) Ur Leukocyte Esterase Negative (Negative) Urine RBC 5-10 H (0-5) /hpf Urine WBC 0-5 (0-5) /hpf Ur Squamous Epith Cells 0-5 (0-5) /hpf Urine Bacteria Few (FEW) /hpf Urine Mucus Few (FEW) /hpf Ketones (0.0-0.3) mM SARS-CoV-2 RNA ([facility]LA) Negative (NEGATIVE) 08/20/20 08/20/20 Range/Units 11:35 12:49 WBC (4.23-9.07) K/mm3 RBC (4.63-6.08) M/mm3 Hgb (13.7-17.5) gm/dl Hct (40.1-51.0) % MCV (79.0-92.2) fl MCH (25.7-32.2) pg MCHC (32.2-35.5) g/dl RDW Std Deviation (35.1-43.9) fL Plt Count (163-337) K/mm3 MPV (9.4-12.3) fl Neut % (Auto) (34.0-67.9) % Lymph % (Auto) (21.8-53.1) % Sharkey % (Auto) (5.3-12.2) % Eos % (Auto) (0.8-7.0) Baso % (Auto) (0.1-1.2) % Neut # (Auto) (1.78-5.38) K/mm3 Lymph # (Auto) (1.32-3.57) K/mm3 Sharkey # (Auto) (0.30-0.82) K/mm3 Eos # (Auto) (0.04-0.54) K/mm3 Baso # (Auto) (0.01-0.08) K/mm3 PT (9.7-12.0) SECONDS INR APTT (21.7-31.4) SECONDS Sodium (136-145) mEq/L Potassium (3.5-5.1) mEq/L Chloride (98-107) mEq/L Carbon Dioxide (21-32) mEq/L Anion Gap (5-15) BUN (7-18) mg/dL Creatinine (0.7-1.3) mg/dL Est Cr Clr Drug Dosing mL/min Estimated GFR (MDRD) (>60) mL/min BUN/Creatinine Ratio (14-18) Glucose 551 H 464 H (80-115) mg/dL Serum Osmolality (280-300) mosm/kg Lactic Acid (0.4-2.0) mmol/L Calcium (8.5-10.1) mg/dL Phosphorus (2.6-4.7) mg/dL Magnesium (1.8-2.4) mg/dl Total Bilirubin (0.2-1.0) mg/dL AST (15-37) U/L ALT (16-63) U/L Alkaline Phosphatase (46-116) U/L Troponin I (0.00-0.056) ng/mL C-Reactive Protein (<1.0) mg/dL NT-Pro-B Natriuret Pep (0-125) pg/mL Total Protein (6.4-8.2) g/dl Albumin (3.4-5.0) g/dl Globulin gm/dL Albumin/Globulin Ratio (1-2) Urine Color (Yellow) Urine Appearance (Clear) Urine pH (5.0-8.0) Ur Specific Wilson (1.005-1.030) Urine Protein (Negative) Urine Glucose (UA) (Negative) Urine Ketones (Negative) Urine Occult Blood (Negative) Urine Nitrite (Negative) Urine Bilirubin (Negative) Urine Urobilinogen (0.2-1.0) Ur Leukocyte Esterase (Negative) Urine RBC (0-5) /hpf Urine WBC (0-5) /hpf Ur Squamous Epith Cells (0-5) /hpf Urine Bacteria (FEW) /hpf Urine Mucus (FEW) /hpf Ketones (0.0-0.3) mM SARS-CoV-2 RNA (NYLA) (NEGATIVE) Result Diagrams: 08/20/20 09:48 08/20/20 09:48 Sepsis Event Note - Evaluation Sepsis Screening Result: No Definite Risk - Focused Exam Vital Signs: Vital Signs Temp Pulse Resp BP Pulse Ox 08/20/20 09:34 97.1 F 91 20 105/64 98 - Problem List (1) Ketoacidosis SNOMED Code(s): 06048482 ICD Code: E87.2 - ACIDOSIS Status: Acute Current Visit: Yes (2) New onset type 2 diabetes mellitus SNOMED Code(s): 45984137 ICD Code: E11.9 - TYPE 2 DIABETES MELLITUS WITHOUT COMPLICATIONS Status: Acute Current Visit: Yes Problem List Initiated/Reviewed/Updated: Yes Orders Last 24hrs: Active Orders 24 hr Category Date Time Status Admission Status [Patient Status] [ADT] Routine ADT 08/20/20 11:16 Active Blood Glucose Check, Bedside [RC] ONETIME Care 08/20/20 09:46 Active EKG Documentation Completion [RC] STAT Care 08/20/20 09:45 Active Oxygen Therapy [RC] PRN Care 08/20/20 13:59 Active Up ad Mattie [RC] ASDIRECTED Care 08/20/20 13:59 Active VTE/DVT Education [RC] PER UNIT ROUTINE Care 08/20/20 13:59 Active Vital Signs [RC] Q4H Care 08/20/20 13:59 Active 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 [CONS] Routine Cons 08/20/20 13:59 Active Consistent Carbohydrate Diet [DIET] Diet 08/20/20 Dinner Active ABG [BLOOD GAS ARTERIAL] [BG] Urgent Lab 08/20/20 14:09 Ordered BASIC METABOLIC PANEL,BMP [CHEM] Routine Lab 08/20/20 14:04 Ordered CBC WITH AUTO DIFF [HEME] AM Lab 08/21/20 05:11 Ordered COMPREHENSIVE METABOLIC PN,CMP [CHEM] AM Lab 08/21/20 05:11 Ordered GLUCOSE RANDOM [CHEM] Q1H Lab 08/20/20 13:47 Received GLUCOSE RANDOM [CHEM] Q1H Lab 08/20/20 14:45 Ordered GLUCOSE RANDOM [CHEM] Q1H Lab 08/20/20 15:45 Ordered GLUCOSE RANDOM [CHEM] Q1H Lab 08/20/20 16:45 Ordered GLYCOSYLATED HEMOGLOBIN,HGBA1C [CHEM] Stat Lab 08/20/20 09:48 Received MAGNESIUM [CHEM] AM Lab 08/21/20 05:11 Ordered MAGNESIUM [CHEM] Routine Lab 08/20/20 14:04 Ordered PHOSPHORUS [CHEM] Routine Lab 08/20/20 14:04 Ordered Acetaminophen [TylenoL] Med 08/20/20 13:59 Active 650 mg PO Q4H PRN Enoxaparin [Lovenox] Med 08/21/20 09:00 Active 40 mg SUBCUT DAILY Insulin Glarg,Human.Rec.Analog [LantUS] Med 08/20/20 16:00 Ordered 10 unit SUBCUT BIDAC Insulin Regular, Human [HumuLIN R] 100 unit Med 08/20/20 10:45 Active Sodium Chloride 0.9% [Normal Saline] 99 ml IV ASDIRECTED Lactated Ringers [Ringers, Lactated] 1,000 ml Med 08/20/20 09:45 Active IV ASDIRECTED Lactated Ringers [Ringers, Lactated] 1,000 ml Med 08/20/20 11:00 Active IV ASDIRECTED atorvaSTATin [Lipitor] Med 08/20/20 21:00 Ordered 20 mg PO BEDTIME Resuscitation Status Routine Resus Stat 08/20/20 13:59 Ordered Medication Orders Acetaminophen (Acetaminophen 325 Mg Tab) 650 mg PO Q4H PRN PRN Reason: Pain (Mild 1-3)/fever Atorvastatin Calcium (Atorvastatin 20 Mg Tab) 20 mg PO BEDTIME [facility] Enoxaparin Sodium (Enoxaparin 40 Mg/0.4 Ml Syringe) 40 mg SUBCUT DAILY [facility] Lactated Ringer's (Ringers, Lactated) 1,000 mls @ 999 mls/hr IV ASDIRECTED [facility] Last Admin: 08/20/20 09:50 Dose: 999 mls/hr Documented by: RUBEN Insulin Human Regular 100 unit (/ Sodium Chloride) 100 mls @ 3 mls/hr IV ASDIRECTED [facility] Last Admin: 08/20/20 10:51 Dose: 3 unit/hr, 3 mls/hr Documented by: RUBEN Cosigned by: JEN Lactated Ringer's (Ringers, Lactated) 1,000 mls @ 999 mls/hr IV ASDIRECTED [facility] Last Admin: 08/20/20 10:56 Dose: 999 mls/hr Documented by: JEN Insulin Glargine (Insulin Glarg,Human.Rec.Analog 100 Unit/Ml) 10 unit SUBCUT BIDAC [facility] Assessment/Plan Comment:: Assessment 54-year-old male with polyuria, polydipsia, and weight loss presents to the emergency department with new onset type 2 diabetes. Patient has had a 17 pound weight loss and palpitations with exertion. Initial blood sugar 712 and reportedly hemoglobin A1c of greater than 14%. Diabetic ketoacidosis Pseudohyponatremia Hyperkalemia * Initial blood sugar 712 * Ketones slightly elevated at 1.2 * Serum osmolality 320 * Anion gap of 16.2 * Given IV fluids and started on insulin drip in the emergency department History of hyperlipidemia Plan * Admit to ICU * Switch to subcu insulin protocol * Fingerstick blood sugar every 1 hour with initially 5 units Humalog subcu per hour until blood sugars are less than 300 and pH is normal. * At that point patient will be started on diabetic diet and 0.5 units of insulin divided with sliding scale insulin will be started. * Lantus 10 units twice daily * Humalog 7 units before every meal plus sliding scale insulin when taking orally * Continue IV fluids at 200 mL/h until taking orally * Follow BMP, magnesium, phosphorus * Recheck ketones and pH as needed * Diabetic education will likely need to be done as an outpatient since it is Sunday afternoon and [facility] * Dietary consult * Nursing to teach how to give insulin * Recheck hemoglobin A1c * If microalbuminuria will start on SMITH or ARB * Continue on home statin * VTE prophylaxis with Lovenox * CODE STATUS full code - Mortality Measure Prognosis:: Good
[2020-08-20] MEDS: Insulin Glarg,Human.Rec.Analog 100 Unit/ML SUBCUT SCH ×2 (14:35→15:24)
[2020-08-20 15:31] LABS: HEMOGLOBIN A1C >14.0 %
[2020-08-20] MEDS: NS + KCl 20mEq/L 1,000 ML IV SCH ×2 (15:57→22:20)
[2020-08-20] MEDS ORDERED: atorvaSTATin 20 MG Tab PO SCH (21:00)
[2020-08-21] MEDS: NS + KCl 20mEq/L 1,000 ML IV SCH (05:06)
[2020-08-21] MEDS: Insulin Glarg,Human.Rec.Analog 100 Unit/ML SUBCUT SCH (06:48)
[2020-08-21] MEDS ORDERED: Enoxaparin 40 MG/0.4 ML Syringe SUBCUT SCH (09:00)
[2020-08-21] MEDS ORDERED: Insulin Glarg,Human.Rec.Analog 100 Unit/ML SUBCUT SCH ×2 (09:45)
--- NOTE | 2020-08-21 13:22 | PCM.DCSUM1 ---
Discharge Summary - Hospital Course Free Text/Narrative:: Patient was admitted to the hospital due to DKA. he was treated with insulin drip and then switch to Lantus subcutaneously. Today he feels much better. Denies headache, dizziness, nausea, vomiting, abdominal pain, dysuria, fever, chills, or polyuria. Vital signs are stable and acceptable. He really wants to go home today. He is newly diagnosed with diabetes. Discussed with him about the care of diabetes and the importance of checking blood sugar. I advised him to check blood sugar before each meal and at bedtime. Adjust the amount of the insulin based on the sugar level. I also met his and the daughter. I explained the diabetes and diabetic care to them. They have a confidence to tell care for him and check his blood sugar and use insulin correctly. He will be discharged home to follow with PCP [place] 3 days (Sunday) ([place]), electrical sign servicer within 1 week and patient educator as soon as possible. Please stay with diabetic diet. Do not drive until approval from MD. Diabetic equipment such as glucometer, lancets, alcohol pads and syringe was prescribed. Spoke to our pharmacy who will supply with him enough insulin for the weekend. Call PCP for medical issues. Diagnosis: Stroke: No - Discharge Data Discharge Date: 08/21/20 Discharge Disposition: Home, Self-Care 01 Condition: Good - Referral to Home Health Primary Care Physician: Kristi Marinelli MD - Patient Summary/Data Consults: Consultations 08/20/20 13:59 Consult to Exchange Operator [CONS] Routine Recommended Follow-up Testing/Procedures: Primary CARE physician ([facility]) within 3 days, electrical sign servicer within 1 week and patient educator as soon as possible. - Patient Instructions Diet: Diabetic Diet Activity: As Tolerated Driving: Do Not Drive - Discharge Plan *PRESCRIPTION DRUG MONITORING PROGRAM REVIEWED*: Not Applicable *COPY OF PRESCRIPTION DRUG MONITORING REPORT IN PATIENT MICAH: Not Applicable Prescriptions/Med Rec: Insulin Lispro [Humalog] See Protocol SUBCUT QIDACANDBED #10 ml Insulin Glarg,Human.Rec.Analog [Lantus] 13 unit SUBCUT BID #10 ml Home Medications: Home Meds Cholecalciferol (Vitamin D3) [Vitamin D3] 25 mcg PO DAILY 08/20/20 [History] atorvaSTATin Calcium [Atorvastatin Calcium] 20 mg PO BEDTIME 08/20/20 [History] metFORMIN HCl [Metformin HCl] 500 mg PO BIDMEALS 08/20/20 [History] Insulin Glarg,Human.Rec.Analog [Lantus] 13 unit SUBCUT BID #10 ml 08/21/20 [Rx] Insulin Lispro [Humalog] See Protocol SUBCUT QIDACANDBED #10 ml 08/21/20 [Rx] Patient Handouts: Type 2 Diabetes Mellitus, Diagnosis, Adult, Steps to Quit Smoking Forms: ED Department Discharge Referrals: Kristi Marinelli MD [Primary Care Provider] - - Discharge Summary/Plan Comment DC Time >30 min.: Yes - General Info Date of Service: 08/21/20 - Review of Systems General: Reports: No Symptoms HEENT: Reports: No Symptoms Pulmonary: Reports: No Symptoms Cardiovascular: Reports: No Symptoms Gastrointestinal: Reports: No Symptoms Genitourinary: Reports: No Symptoms Musculoskeletal: Reports: No Symptoms Skin: Reports: No Symptoms Neurological: Reports: No Symptoms Psychiatric: Reports: No Symptoms - Patient Data Vitals - Most Recent: Last Vital Signs Temp 36.3 C 08/21/20 12:00 Pulse 71 08/21/20 12:00 Resp 16 08/21/20 12:00 BP 137/76 08/21/20 12:00 Pulse Ox 96 08/21/20 12:00 Weight - Most Recent: 87.815 kg I&O - Last 24 hours: Intake & Output 08/20/20 08/21/20 08/21/20 22:59 06:59 14:59 Intake Total 795 2090 1120 Output Total 400 200 175 Balance 395 1890 945 Lab Results - Last 24 hrs: Laboratory Results - last 24 hr 08/20/20 08/20/20 08/20/20 Range/Units 09:48 12:49 13:47 WBC (4.23-9.07) K/mm3 RBC (4.63-6.08) M/mm3 Hgb (13.7-17.5) gm/dl Hct (40.1-51.0) % MCV (79.0-92.2) fl MCH (25.7-32.2) pg MCHC (32.2-35.5) g/dl RDW Std Deviation (35.1-43.9) fL Plt Count (163-337) K/mm3 MPV (9.4-12.3) fl Neut % (Auto) (34.0-67.9) % Lymph % (Auto) (21.8-53.1) % [place] % (Auto) (5.3-12.2) % Eos % (Auto) (0.8-7.0) Baso % (Auto) (0.1-1.2) % Neut # (Auto) (1.78-5.38) K/mm3 Lymph # (Auto) (1.32-3.57) K/mm3 [place] # (Auto) (0.30-0.82) K/mm3 Eos # (Auto) (0.04-0.54) K/mm3 Baso # (Auto) (0.01-0.08) K/mm3 Manual Slide Review Puncture Site ABG pH (7.35-7.45) ABG pCO2 (35.0-45.0) mmHg ABG pO2 (80.0-100.0) mmHg ABG HCO3 (22.0-26.0) meq/L ABG O2 Saturation (96.0-97.0) % ABG Base Excess (-2-2.0) Jose Luis Test O2 Delivery Device Sodium (136-145) mEq/L Potassium (3.5-5.1) mEq/L Chloride (98-107) mEq/L Carbon Dioxide (21-32) mEq/L Anion Gap (5-15) BUN (7-18) mg/dL Creatinine (0.7-1.3) mg/dL Est Cr Clr Drug Dosing mL/min Estimated GFR (MDRD) (>60) mL/min BUN/Creatinine Ratio (14-18) Glucose 464 H 421 H (80-115) mg/dL POC Glucose (80-115) mg/dL Hemoglobin A1c >14.0 H ( - 5.6) % Calcium (8.5-10.1) mg/dL Phosphorus (2.6-4.7) mg/dL Magnesium (1.8-2.4) mg/dl Total Bilirubin (0.2-1.0) mg/dL AST (15-37) U/L ALT (16-63) U/L Alkaline Phosphatase (46-116) U/L Total Protein (6.4-8.2) g/dl Albumin (3.4-5.0) g/dl Globulin gm/dL Albumin/Globulin Ratio (1-2) 08/20/20 08/20/20 08/20/20 Range/Units 14:09 14:45 14:45 WBC (4.23-9.07) K/mm3 RBC (4.63-6.08) M/mm3 Hgb (13.7-17.5) gm/dl Hct (40.1-51.0) % MCV (79.0-92.2) fl MCH (25.7-32.2) pg MCHC (32.2-35.5) g/dl RDW Std Deviation (35.1-43.9) fL Plt Count (163-337) K/mm3 MPV (9.4-12.3) fl Neut % (Auto) (34.0-67.9) % Lymph % (Auto) (21.8-53.1) % [place] % (Auto) (5.3-12.2) % Eos % (Auto) (0.8-7.0) Baso % (Auto) (0.1-1.2) % Neut # (Auto) (1.78-5.38) K/mm3 Lymph # (Auto) (1.32-3.57) K/mm3 [place] # (Auto) (0.30-0.82) K/mm3 Eos # (Auto) (0.04-0.54) K/mm3 Baso # (Auto) (0.01-0.08) K/mm3 Manual Slide Review Puncture Site Lt radial ABG pH 7.43 (7.35-7.45) ABG pCO2 38.1 (35.0-45.0) mmHg ABG pO2 65.0 L (80.0-100.0) mmHg ABG HCO3 25.0 (22.0-26.0) meq/L ABG O2 Saturation 94.0 L (96.0-97.0) % ABG Base Excess 1.4 (-2-2.0) Jose Luis Test Positive O2 Delivery Device Room air Sodium 134 L (136-145) mEq/L Potassium 3.9 (3.5-5.1) mEq/L Chloride 98 (98-107) mEq/L Carbon Dioxide 26 (21-32) mEq/L Anion Gap 13.9 (5-15) BUN 30 H (7-18) mg/dL Creatinine 1.4 H (0.7-1.3) mg/dL Est Cr Clr Drug Dosing 50.89 mL/min Estimated GFR (MDRD) 51 (>60) mL/min BUN/Creatinine Ratio 21.4 H (14-18) Glucose 377 H 377 H (80-115) mg/dL POC Glucose (80-115) mg/dL Hemoglobin A1c ( - 5.6) % Calcium 9.4 (8.5-10.1) mg/dL Phosphorus 3.4 (2.6-4.7) mg/dL Magnesium 2.2 (1.8-2.4) mg/dl Total Bilirubin (0.2-1.0) mg/dL AST (15-37) U/L ALT (16-63) U/L Alkaline Phosphatase (46-116) U/L Total Protein (6.4-8.2) g/dl Albumin (3.4-5.0) g/dl Globulin gm/dL Albumin/Globulin Ratio (1-2) 08/20/20 08/20/20 08/20/20 Range/Units 15:48 17:09 18:25 WBC (4.23-9.07) K/mm3 RBC (4.63-6.08) M/mm3 Hgb (13.7-17.5) gm/dl Hct (40.1-51.0) % MCV (79.0-92.2) fl MCH (25.7-32.2) pg MCHC (32.2-35.5) g/dl RDW Std Deviation (35.1-43.9) fL Plt Count (163-337) K/mm3 MPV (9.4-12.3) fl Neut % (Auto) (34.0-67.9) % Lymph % (Auto) (21.8-53.1) % [place] % (Auto) (5.3-12.2) % Eos % (Auto) (0.8-7.0) Baso % (Auto) (0.1-1.2) % Neut # (Auto) (1.78-5.38) K/mm3 Lymph # (Auto) (1.32-3.57) K/mm3 [place] # (Auto) (0.30-0.82) K/mm3 Eos # (Auto) (0.04-0.54) K/mm3 Baso # (Auto) (0.01-0.08) K/mm3 Manual Slide Review Puncture Site ABG pH (7.35-7.45) ABG pCO2 (35.0-45.0) mmHg ABG pO2 (80.0-100.0) mmHg ABG HCO3 (22.0-26.0) meq/L ABG O2 Saturation (96.0-97.0) % ABG Base Excess (-2-2.0) Jose Luis Test O2 Delivery Device Sodium (136-145) mEq/L Potassium (3.5-5.1) mEq/L Chloride (98-107) mEq/L Carbon Dioxide (21-32) mEq/L Anion Gap (5-15) BUN (7-18) mg/dL Creatinine (0.7-1.3) mg/dL Est Cr Clr Drug Dosing mL/min Estimated GFR (MDRD) (>60) mL/min BUN/Creatinine Ratio (14-18) Glucose (80-115) mg/dL POC Glucose 329 H 257 H 236 H (80-115) mg/dL Hemoglobin A1c ( - 5.6) % Calcium (8.5-10.1) mg/dL Phosphorus (2.6-4.7) mg/dL Magnesium (1.8-2.4) mg/dl Total Bilirubin (0.2-1.0) mg/dL AST (15-37) U/L ALT (16-63) U/L Alkaline Phosphatase (46-116) U/L Total Protein (6.4-8.2) g/dl Albumin (3.4-5.0) g/dl Globulin gm/dL Albumin/Globulin Ratio (1-2) 08/20/20 08/21/20 08/21/20 Range/Units 20:13 05:50 05:50 WBC 7.92 (4.23-9.07) K/mm3 RBC 4.19 L (4.63-6.08) M/mm3 Hgb 13.1 L D (13.7-17.5) gm/dl Hct 38.5 L (40.1-51.0) % MCV 91.9 D (79.0-92.2) fl MCH 31.3 (25.7-32.2) pg MCHC 34.0 (32.2-35.5) g/dl RDW Std Deviation 42.2 (35.1-43.9) fL Plt Count 239 (163-337) K/mm3 MPV 9.9 (9.4-12.3) fl Neut % (Auto) 55.9 (34.0-67.9) % Lymph % (Auto) 32.4 (21.8-53.1) % [place] % (Auto) 9.6 (5.3-12.2) % Eos % (Auto) 1.3 (0.8-7.0) Baso % (Auto) 0.4 (0.1-1.2) % Neut # (Auto) 4.43 (1.78-5.38) K/mm3 Lymph # (Auto) 2.57 (1.32-3.57) K/mm3 [place] # (Auto) 0.76 (0.30-0.82) K/mm3 Eos # (Auto) 0.10 (0.04-0.54) K/mm3 Baso # (Auto) 0.03 (0.01-0.08) K/mm3 Manual Slide Review Not Reportable Puncture Site ABG pH (7.35-7.45) ABG pCO2 (35.0-45.0) mmHg ABG pO2 (80.0-100.0) mmHg ABG HCO3 (22.0-26.0) meq/L ABG O2 Saturation (96.0-97.0) % ABG Base Excess (-2-2.0) Jose Luis Test O2 Delivery Device Sodium 139 (136-145) mEq/L Potassium 4.3 (3.5-5.1) mEq/L Chloride 105 (98-107) mEq/L Carbon Dioxide 25 (21-32) mEq/L Anion Gap 13.3 (5-15) BUN 33 H (7-18) mg/dL Creatinine 1.1 (0.7-1.3) mg/dL Est Cr Clr Drug Dosing 64.77 mL/min Estimated GFR (MDRD) > 60 (>60) mL/min BUN/Creatinine Ratio 30.0 H (14-18) Glucose 296 H (80-115) mg/dL POC Glucose 216 H (80-115) mg/dL Hemoglobin A1c ( - 5.6) % Calcium 8.1 L (8.5-10.1) mg/dL Phosphorus (2.6-4.7) mg/dL Magnesium 1.9 (1.8-2.4) mg/dl Total Bilirubin 0.4 (0.2-1.0) mg/dL AST 20 (15-37) U/L ALT 31 (16-63) U/L Alkaline Phosphatase 95 (46-116) U/L Total Protein 5.3 L (6.4-8.2) g/dl Albumin 2.4 L (3.4-5.0) g/dl Globulin 2.9 gm/dL Albumin/Globulin Ratio 0.8 L (1-2) 08/21/20 08/21/20 Range/Units 06:46 10:56 WBC (4.23-9.07) K/mm3 RBC (4.63-6.08) M/mm3 Hgb (13.7-17.5) gm/dl Hct (40.1-51.0) % MCV (79.0-92.2) fl MCH (25.7-32.2) pg MCHC (32.2-35.5) g/dl RDW Std Deviation (35.1-43.9) fL Plt Count (163-337) K/mm3 MPV (9.4-12.3) fl Neut % (Auto) (34.0-67.9) % Lymph % (Auto) (21.8-53.1) % [place] % (Auto) (5.3-12.2) % Eos % (Auto) (0.8-7.0) Baso % (Auto) (0.1-1.2) % Neut # (Auto) (1.78-5.38) K/mm3 Lymph # (Auto) (1.32-3.57) K/mm3 [place] # (Auto) (0.30-0.82) K/mm3 Eos # (Auto) (0.04-0.54) K/mm3 Baso # (Auto) (0.01-0.08) K/mm3 Manual Slide Review Puncture Site ABG pH (7.35-7.45) ABG pCO2 (35.0-45.0) mmHg ABG pO2 (80.0-100.0) mmHg ABG HCO3 (22.0-26.0) meq/L ABG O2 Saturation (96.0-97.0) % ABG Base Excess (-2-2.0) Jose Luis Test O2 Delivery Device Sodium (136-145) mEq/L Potassium (3.5-5.1) mEq/L Chloride (98-107) mEq/L Carbon Dioxide (21-32) mEq/L Anion Gap (5-15) BUN (7-18) mg/dL Creatinine (0.7-1.3) mg/dL Est Cr Clr Drug Dosing mL/min Estimated GFR (MDRD) (>60) mL/min BUN/Creatinine Ratio (14-18) Glucose (80-115) mg/dL POC Glucose 295 H 324 H (80-115) mg/dL Hemoglobin A1c ( - 5.6) % Calcium (8.5-10.1) mg/dL Phosphorus (2.6-4.7) mg/dL Magnesium (1.8-2.4) mg/dl Total Bilirubin (0.2-1.0) mg/dL AST (15-37) U/L ALT (16-63) U/L Alkaline Phosphatase (46-116) U/L Total Protein (6.4-8.2) g/dl Albumin (3.4-5.0) g/dl Globulin gm/dL Albumin/Globulin Ratio (1-2) Med Orders - Current: Current Medications Acetaminophen (Acetaminophen 325 Mg Tab) 650 mg PO Q4H PRN PRN Reason: Pain (Mild 1-3)/fever Atorvastatin Calcium (Atorvastatin 20 Mg Tab) 20 mg PO BEDTIME [facility] Last Admin: 08/20/20 20:19 Dose: 20 mg Documented by: Enoxaparin Sodium (Enoxaparin 40 Mg/0.4 Ml Syringe) 40 mg SUBCUT DAILY [facility] Last Admin: 08/21/20 08:44 Dose: 40 mg Documented by: Potassium Chloride/Sodium Chloride (Normal Saline With 20 Meq Kcl) 1,000 mls @ 150 mls/hr IV ASDIRECTED [facility] Last Admin: 08/21/20 05:06 Dose: 150 mls/hr Documented by: Insulin Glargine (Insulin Glarg,Human.Rec.Analog 100 Unit/Ml) 13 unit SUBCUT BIDAC [facility] Last Admin: 08/21/20 10:52 Dose: 3 units Documented by: Insulin Glargine (Insulin Glarg,Human.Rec.Analog 100 Unit/Ml) 13 unit SUBCUT BID Stop: 09/28/20 23:59 Insulin Human Lispro (Insulin Lispro 100 Unit/Ml) 0 unit SUBCUT QIDACANDBED [facility]; Protocol Last Admin: 08/21/20 11:51 Dose: 12 units Documented by: Insulin Human Lispro (Insulin Lispro 100 Unit/Ml) 0 unit SUBCUT QIDACANDBED Stop: 09/19/20 23:59 Discontinued Medications Lactated Ringer's (Ringers, Lactated) 1,000 mls @ 999 mls/hr IV ASDIRECTED [facility] Last Admin: 08/20/20 09:50 Dose: 999 mls/hr Documented by: Insulin Human Regular 100 unit (/ Sodium Chloride) 100 mls @ [facility] Last Admin: 08/20/20 10:51 Dose: 3 unit/hr, 3 mls/hr Documented by: Lactated Ringer's (Ringers, Lactated) 1,000 mls [facility] Admin: 08/20/20 10:56 Dose: 999 mls/hr Documented by: Lactated Ringer's (Ringers, Lactated) 1,000 mls @ 200 [facility] Last Admin: 08/20/20 14:36 Dose: 200 mls/hr Documented by: Insulin Glargine (Insulin Glarg,Human.Rec.Analog 100 Unit/Ml) [facility] Last Admin: 08/21/20 06:48 Dose: 10 unit Documented by: Insulin Human Lispro (Insulin Lispro 100 Unit/Ml) 5 unit SUBCUT ONETIME ONE Stop: 08/20/20 14:31 Last Admin: 08/20/20 14:33 Dose: 5 unit Documented by: Insulin Human Lispro (Insulin Lispro 100 Unit/Ml) 5 unit SUBCUT ONETIME ONE Stop: 08/20/20 16:01 Last Admin: 08/20/20 15:57 Dose: 5 unit Documented by: Insulin Human Lispro (Insulin Lispro 100 Unit/Ml) 7 unit SUBCUT ONETIME ONE Stop: 08/20/20 16:31 Last Admin: 08/20/20 16:33 Dose: 7 unit Documented by: - Exam General: Reports: Alert, Oriented, Cooperative, No Acute Distress HEENT: Reports: Pupils Equal, Pupils Reactive, EOMI, Mucous Membr. Moist/Spangle Neck: Reports: Supple, No JVD Lungs: Reports: Clear to Auscultation, Normal Respiratory Effort Cardiovascular: Reports: Regular Rate, Regular Rhythm GI/Abdominal Exam: Normal Bowel Sounds, Soft, Non-Tender, No Organomegaly Back Exam: Reports: Normal Inspection Extremities: Normal Inspection, Normal Range of Motion, Non-Tender Skin: Reports: Warm, Dry, Intact Neurological: Reports: Normal Speech, Normal Tone, Strength Equal Bilateral, Reflexes Equal Bilateral Psy/Mental Status: Reports: Alert, Normal Affect, Normal Mood
== END 2020-08-21 13:45 | disposition home or self-care (01) | DRG 640 ==
LOC: JD.ED 09:26 → JD.ICU 11:16
PROVIDERS: ADMIT Emergency Medicine; ATTEND Family Medicine
DX: E86.9 Volume depletion, unspecified (principal); E11.10 Type 2 diabetes mellitus with ketoacidosis without coma; E87.5 Hyperkalemia; R79.89 Other specified abnormal findings of blood chemistry; H91.90 Unspecified hearing loss, unspecified ear; I10 Essential (primary) hypertension; F17.210 Nicotine dependence, cigarettes, uncomplicated; E78.00 Pure hypercholesterolemia, unspecified; E78.5 Hyperlipidemia, unspecified; K59.00 Constipation, unspecified; M54.9 Dorsalgia, unspecified; Z79.899 Other long term (current) drug therapy; Z79.84 Long term (current) use of oral hypoglycemic drugs; Z87.891 Personal history of nicotine dependence; Z20.822 Contact with and (suspected) exposure to COVID-19
CPT/HCPCS: 36415; 36600; 71045; 71045-26; 80048; 80053; 81001; 82009; 82803; 82947; 82962; 83036; 83605; 83735; 83880; 83930; 84100; 84484; 85025; 85610; 85730; 86140; 93005; 93010; 99222; 99239; 99284; 99285-25; A9270-GY; J1650; J1815-GY; J3480; J7120; U0002

== ENCOUNTER 2024-11-20 07:00 | Day surgery (SDC) | payer OTHER ==
[2024-11-20] MEDS: Polymyxin B/Trimethoprim 10 ML Bottle EYELF SCH (07:10)
[2024-11-20] MEDS: Brimonidine 0.2% Ophth Soln 5 ML Bottle EYELF SCH (07:15)
[2024-11-20] MEDS: Phenylephrine 2.5% Ophth Soln 2 ML Bot EYELF SCH (07:20)
[2024-11-20] MEDS: Tropicamide 1% Ophth Soln 3 ML Bottle EYELF SCH (07:25)
[2024-11-20] MEDS: Tetracaine HCl/PF 0.5% 4 ML Bottle EYEBOTH SCH (08:19)
[2024-11-20] MEDS: Lidocaine 1% PF 2 ML SDV INJECT SCH (08:43)
[2024-11-20] MEDS: Cefuroxime 10 MG/ML SYRINGE EYELF SCH (08:56)
[2024-11-20] MEDS: Pilocarpine 4% Ophth Soln 15 ML Bot EYELF SCH (08:57)
== END 2024-11-20 09:12 | disposition home or self-care (01) ==
LOC: JD.SDS 07:00
PROVIDERS: ATTEND Ophthalmology
DX: E10.36 Type 1 diabetes mellitus with diabetic cataract (principal); H25.813 Combined forms of age-related cataract, bilateral; H40.053 Ocular hypertension, bilateral; H16.103 Unspecified superficial keratitis, bilateral; H16.223 Keratoconjunctivitis sicca, not specified as Sjogren's, bilateral; H57.813 Brow ptosis, bilateral; H02.831 Dermatochalasis of right upper eyelid; H02.834 Dermatochalasis of left upper eyelid; I10 Essential (primary) hypertension; E78.2 Mixed hyperlipidemia; F17.200 Nicotine dependence, unspecified, uncomplicated; Z79.84 Long term (current) use of oral hypoglycemic drugs; Z79.899 Other long term (current) drug therapy
CPT/HCPCS: 66984; A9270; J0697; J3490